=== PATIENT | female | born 1975 | race Caucasian/White ===

== ENCOUNTER 2017-01-15 11:10 | Emergency (ER) | payer OTHER ==
[~2017-01-15 11:10] MED LIST: ALUM5LIQ PO; HYDR-3533 PO; PROM25TA5 PO; TRAM50 PO
[2017-01-15 11:13] VITALS: BP 111/59; PULSE 88; RESP 20; TEMP 97.3; O2SAT 99
[2017-01-15] MEDS ORDERED: IBUPROFEN 800 MG TAB PO ONE (11:30)
--- NOTE | 2017-01-15 11:36 | PD ---
HPI Chief Complaint: Musculoskeletal Complaint Time Seen by Provider: 11:31 Travel History International Travel<30 days: No Contact w/Intl Traveler<30days: No Traveled to known affect area: No History of Present Illness HPI 41-year-old female presents to emergency Department with complaint of left lateral ankle pain that extends to the left lateral foot 2 days. She states that she worse heels 4 days ago and injured her ankle, but her symptoms worsened over the past 2 days. Denies fever, vomiting. Denies paresthesias, loss of sensation to the affected extremity. Has not taken any medications or tried any treatments to alleviate her symptoms. Symptoms are mild in severity. Allergies to hydrocodone. Has no other medical complaints. No other modifying factors or associated signs and symptoms. PFSH Past Medical History Asthma: Yes Blood Disorders: No Heart Rhythm Problems: No Cancer: No Cardiovascular Problems: No High Cholesterol: No Chest Pain: No Congestive Heart Failure: No COPD: No Diminished Hearing: No Endocrine: No Gastrointestinal Disorders: Yes Genitourinary: No Immune Disorder: No Musculoskeletal: No Neurologic: No Psychiatric: No Reproductive: No Respiratory: Yes (asthma) Immunizations Current: Yes Pancreatitis: Yes Sleep Apnea: No Tetanus Vaccination: < 5 Years ?: Not : 5 Para: 4 Past Surgical History Section: Yes Hysterectomy: Yes Other Surgery: Yes (, partial hysterectomy) Social History Alcohol Use: No Tobacco Use: Yes (a pack a day ) Substance Use: No Allergies-Medications (Allergen,Severity, Reaction): Coded Allergies: Hydrocodone (Verified Adverse Reaction, Severe, NAUSEA AND VOMITING, ) Reported Meds & Prescriptions Reported Meds & Active Scripts Active Reported Ventolin Hfa 18 GM Inh (Albuterol Sulfate) 90 Mcg/Act Aer 2 Puff INH Q4H PRN Review of Systems Except as stated in HPI: all other systems reviewed are Neg Physical Exam Narrative GENERAL: Well-nourished, well-developed female patient, in no acute distress SKIN: Warm and dry. HEAD: Atraumatic. Normocephalic. EYES: Pupils equal and round. No scleral icterus. No injection or drainage. ENT: Mucosa pink and moist. Airway patent. NECK: Trachea midline. CARDIOVASCULAR: Regular rate. RESPIRATORY: No accessory muscle use. GASTROINTESTINAL: Rounded. MUSCULOSKELETAL: Left ankle with point tenderness to the lateral malleolar and midfoot zone with palpation; mild edema; without erythema, ecchymosis; no obvious deformity. Left Lower extremity is supple and nontense with 2+ pedal pulse and sensory intact. No obvious deformities. No clubbing. No cyanosis. No edema. NEUROLOGICAL: Awake and alert. Oriented 3. No obvious cranial nerve deficits. Motor grossly within normal limits. Normal speech. PSYCHIATRIC: Appropriate mood and affect; insight and judgment normal. Data Data Last Documented VS Vital Signs Date Time Temp Pulse Resp B/P Pulse Ox O2 Delivery O2 Flow Rate FiO2 01/15/17 11:13 97.3 88 20 111/59 99 Room Air Orders Ankle, Complete (Pag1ltm) (01/15/17 11:21) Foot, Complete (Pby2ipw) (01/15/17 11:24) Ibuprofen (Motrin) (01/15/17 11:30) MDM Medical Decision Making Medical Screen Exam Complete: Yes Emergency Medical Condition: Yes Medical Record Reviewed: Yes Differential Diagnosis Ankle sprain, ankle fracture, foot sprain, foot fracture Narrative Course 41-year-old female with left ankle and foot injury. Ibuprofen administered in the ER. Left ankle and foot x-ray ordered. 1249: Left ankle and foot x-ray concludes: Last 24 hours Impressions Foot X-Ray 01/15/17 1124 Signed Impressions: Service Date/Time: Sunday, January 15, 2017 11:34 - CONCLUSION: 1. Mild soft tissue prominence along the posterior lateral foot with no acute fracture or malalignment. 2. Small spur off the inferior calcaneus. Dany Hannon MD Ankle X-Ray 01/15/17 1121 Signed Impressions: Service Date/Time: Sunday, January 15, 2017 11:33 - CONCLUSION: Soft tissue swelling with no acute fracture or malalignment. Dany Hannon MD [place] bandage and ankle stirrup splint for right upper support. Crutches provided for support. Ibuprofen prescribed for home. Instructed patient to follow up with primary care provider. Patient verbalizes understanding and agreement with treatment plan. Patient is medically cleared and stable for discharge. Discussed reasons to return to the emergency department. Patient agrees with treatment plan. The patients vital signs are stable and the patient is stable for outpatient follow-up and treatment. Patient discharged home, stable and in no acute distress. Diagnosis Primary Impression: Left ankle injury Qualified Code: S99.912A - Injury of left ankle, initial encounter Referrals: Primary Care Physician Patient Instructions: Ankle Sprain (ED), Foot Sprain (ED), General Instructions , Heel Spur (ED) Additional Instructions: Tylenol or ibuprofen as directed and as needed for pain and inflammation Rest, ice, compress, and elevate extremity to decrease pain and inflammation Ankle Brace for support Crutches for support Avoid aggravating activity; increase activity as tolerated Follow-up with primary care provider Return to the emergency department immediately with worsening of symptoms Med/Other Pt SpecificInfo: Prescription(s) given Scripts Ibuprofen 800 Mg [id number] Mg PO Q6HR PRN (PAIN) #30 TAB Ref 0 Prov:Mandie Felipe 01/15/17 Disposition: 01 DISCHARGE HOME Condition: Stable Mandie Felipe Jan 15, 2017 11:36
--- NOTE | 2017-01-15 11:53 | RADRPT ---
EXAM DATE/TIME: 01/15/2017 11:33 [facility] COMPARISON: No previous studies available for comparison. INDICATIONS : Left ankle pain, twisted MEDICAL HISTORY : None. SURGICAL HISTORY : None. ENCOUNTER: Initial ACUITY: 3 days PAIN SCORE: 4/10 LOCATION: Left Ankle FINDINGS: Three view exam was performed of the left ankle. The bony structures are in normal alignment. No ev idence of acute fracture or malalignment. There is soft tissue swelling over the lateral malleolus. The ankle mortise is intact. No radiopaque foreign bodies are seen. Bony mineralization is normal. There is a small spur off the inferior calcaneus. CONCLUSION: Soft tissue swelling with no acute fracture or malalignment. Dany Hannon MD on January 15, 2017 at 11:51 Board Certified Radiologist. This report was verified electronically.
--- NOTE | 2017-01-15 11:54 | RADRPT ---
EXAM DATE/TIME: 01/15/2017 11:34 [facility] COMPARISON: No previous studies available for comparison. INDICATIONS : Left foot pain, twisted MEDICAL HISTORY : None. SURGICAL HISTORY : None. ENCOUNTER: Initial ACUITY: 3 days PAIN SCORE: 4/10 LOCATION: Left Foot FINDINGS: Three view examination of the left foot demonstrates no acute fracture or or malalignment. There is m ild soft tissue prominence along the posterior lateral foot. The tarsal bones appear intact. The int erphalangeal and metatarsophalangeal joints are intact. There is a small spur off the inferior calcan eus at the site of attachment of the plantar aponuerosis. Bony mineralization is normal. CONCLUSION: 1. Mild soft tissue prominence along the posterior lateral foot with no acute fracture or malalignmen t. 2. Small spur off the inferior calcaneus. Dany Hannon MD on January 15, 2017 at 11:51 Board Certified Radiologist. This report was verified electronically.
[2017-01-15] MEDS ORDERED: VENTAER INH (12:29)
[2017-01-15] MEDS ORDERED: IBUP800T23 PO (12:51)
== END 2017-01-15 13:35 | disposition home or self-care (01) ==
LOC: NEPD 11:10
DX: S99.912A Unspecified injury of left ankle, initial encounter (principal); X58.XXXA Exposure to other specified factors, initial encounter; Z72.0 Tobacco use
CPT/HCPCS: 29540; 73610; 73630; 99283; E0113; L1906

== ENCOUNTER 2017-08-21 22:14 | Emergency (ER) | payer OTHER ==
[~2017-08-21] VITALS: Ht 162.6 cm; Wt 88.0 kg
[~2017-08-21 22:14] MED LIST changes: -ALUM5LIQ PO; -HYDR-3533 PO; +IBUP1TAB7 PO; -PROM25TA5 PO; -TRAM50 PO; +VENTAER INH
[2017-08-21 23:20] VITALS: BP 130/60; PULSE 85; RESP 18; TEMP 98.5; O2SAT 97
--- NOTE | 2017-08-22 02:23 | PD ---
HPI Chief Complaint: Flank/Kidney Pain Time Seen by Provider: 02:22 Travel History International Travel<30 days: No Contact w/Intl Traveler<30days: No Traveled to known affect area: No History of Present Illness HPI 41-year-old female came to the emergency room with history of abdominal discomfort with the pain radiating to her back. She has history of pancreatitis and she says this is how she felt when she had a pancreatitis. He symptoms are going on for past 5 days. Patient said she did not have any bowel movement up until earlier today and it was a small quantity. She has vomited few times. No history of fever or chills. Vital signs were relatively stable. Patient had a hysterectomy in the past. No aggravating or relieving factors identified. [facility] Past Medical History Narrative Medical List of her past medical, surgical, social and family history is reviewed from the nursing note. Asthma: Yes Blood Disorders: No Heart Rhythm Problems: No Cancer: No Cardiovascular Problems: No High Cholesterol: No Chest Pain: No Congestive Heart Failure: No COPD: No Diminished Hearing: No Endocrine: No Gastrointestinal Disorders: Yes Genitourinary: No Immune Disorder: No Implanted Vascular Access Dvce: No Musculoskeletal: No Neurologic: No Psychiatric: No Reproductive: No Respiratory: Yes (asthma) Immunizations Current: Yes Pancreatitis: Yes Sleep Apnea: No Tetanus Vaccination: Unknown Influenza Vaccination: No ?: Not : 5 Para: 4 Past Surgical History Section: Yes Hysterectomy: Yes Other Surgery: Yes (, partial hysterectomy) Social History Alcohol Use: No Tobacco Use: No (a pack a day ) Substance Use: No Allergies-Medications (Allergen,Severity, Reaction): Coded Allergies: hydrocodone (Unverified Adverse Reaction, Severe, NAUSEA AND VOMITING, ) Comments List of her allergies reviewed from the nursing note. Reported Meds & Prescriptions Reported Meds & Active Scripts Active Miralax Powder (Polyethylene Glycol 3350 Powder) 17 Gm Powd 17 Gm PO DAILY Mix and dissolve one measuring cap-ful (17 grams) in water or juice. Ibuprofen 800 Mg Tab 800 Mg PO Q6HR PRN Reported Ventolin Hfa 18 GM Inh (Albuterol Sulfate) 90 Mcg/Act Aer 2 Puff INH Q4H PRN Narrative Medication List of her home medications reviewed from the nursing note. Review of Systems Except as stated in HPI: all other systems reviewed are Neg Gastrointestinal: Positive: Nausea, Vomiting, Abdominal Pain, Constipation Physical Exam Narrative GENERAL: Awake, alert, moderate distress SKIN: Focused skin assessment warm/dry. HEAD: Atraumatic. Normocephalic. EYES: Pupils equal and round. No scleral icterus. No injection or drainage. ENT: No nasal bleeding or discharge. Mucous membranes pink and moist. NECK: Trachea midline. No JVD. CARDIOVASCULAR: Regular rate and rhythm. No murmur appreciated. RESPIRATORY: No accessory muscle use. Clear to auscultation. Breath sounds equal bilaterally. GASTROINTESTINAL: Abdomen soft, non-tender, nondistended. Hepatic and splenic margins not palpable. MUSCULOSKELETAL: No obvious deformities. No clubbing. No cyanosis. No edema. NEUROLOGICAL: Awake and alert. No obvious cranial nerve deficits. Motor grossly within normal limits. Normal speech. PSYCHIATRIC: Appropriate mood and affect; insight and judgment normal. Data Data Last Documented VS Orders Orders Complete Blood Count With Diff (08/22/17 02:30) Comprehensive Metabolic Panel (08/22/17 02:30) Lipase (08/22/17 02:30) Urinalysis - C+S If Indicated (08/22/17 02:30) Ct Abd/Pel W/O Iv Contrast (08/22/17 02:30) Iv Access Insert/Monitor (08/22/17 02:30) Ecg Monitoring (08/22/17 02:30) Oximetry (08/22/17 02:30) Morphine Inj (Morphine Inj) (08/22/17 02:30) Ondansetron Inj (Zofran Inj) (08/22/17 02:30) Sodium Chlor 0.9% 1000 Ml Inj (Ns 1000 M (08/22/17 02:30) Sodium Chloride 0.9% Flush (Ns Flush) (08/22/17 02:30) Ed Discharge Order (08/22/17 04:23) Labs Laboratory Tests Test 08/22/17 03:05 White Blood Count 13.0 TH/MM3 Red Blood Count 4.93 MIL/MM3 Hemoglobin 14.7 GM/DL Hematocrit 43.6 % Mean Corpuscular Volume 88.5 FL Mean Corpuscular Hemoglobin 29.8 PG Mean Corpuscular Hemoglobin Concent 33.6 % Red Cell Distribution Width 13.3 % Platelet Count 409 TH/MM3 Mean Platelet Volume 6.8 FL Neutrophils (%) (Auto) 55.4 % Lymphocytes (%) (Auto) 31.4 % Monocytes (%) (Auto) 8.3 % Eosinophils (%) (Auto) 4.3 % Basophils (%) (Auto) 0.6 % Neutrophils # (Auto) 7.2 TH/MM3 Lymphocytes # (Auto) 4.1 TH/MM3 Monocytes # (Auto) 1.1 TH/MM3 Eosinophils # (Auto) 0.6 TH/MM3 Basophils # (Auto) 0.1 TH/MM3 CBC Comment DIFF FINAL Differential Comment Urine Color YELLOW Urine Turbidity HAZY Urine pH 6.0 Urine Specific Hunt 1.017 Urine Protein TRACE mg/dL Urine Glucose (UA) NEG mg/dL Urine Ketones NEG mg/dL Urine Occult Blood SMALL Urine Nitrite NEG Urine Bilirubin NEG Urine Urobilinogen LESS THAN 2.0 MG/DL Urine Leukocyte Esterase TRACE Urine RBC 5 /hpf Urine WBC 2 /hpf Urine Squamous Epithelial Cells 38 /hpf Urine Bacteria FEW /hpf Urine Hyaline Casts 1 /lpf Urine Mucus FEW /lpf Microscopic Urinalysis Comment CULT NOT INDICATED Blood Urea Nitrogen 12 MG/DL Creatinine 0.77 MG/DL Random Glucose 94 MG/DL Total Protein 7.5 GM/DL Albumin 3.8 GM/DL Calcium Level 8.6 MG/DL Alkaline Phosphatase 62 U/L Aspartate Amino Transf (AST/SGOT) 20 U/L Alanine Aminotransferase (ALT/SGPT) 35 U/L Total Bilirubin 0.2 MG/DL Sodium Level 138 MEQ/L Potassium Level 3.9 MEQ/L Chloride Level 106 MEQ/L Carbon Dioxide Level 26.3 MEQ/L Anion Gap 6 MEQ/L Estimat Glomerular Filtration Rate 83 ML/MIN Lipase 177 U/L [facility] Medical Decision Making Medical Screen Exam Complete: Yes Emergency Medical Condition: Yes Medical Record Reviewed: Yes Differential Diagnosis Acute pancreatitis, small bowel obstruction, abdominal pain NOS Narrative Course 4:27 AM blood test results of back and patient has some leukocytosis. Otherwise chemistries negative and lipase is normal limits. CT scan of the abdomen and pelvis does not show any acute reason for this pain. There was an incidental finding of appendicolith. I explained all of these test results to the patient. UA was negative. At this point I do not have a good reason for her abdominal pain. I will discharge her home on MiraLAX for possible constipation. Patient discomfort going home. Procedures EKG Prior to Arrival: No Diagnosis Primary Impression: Abdominal pain Qualified Codes: R10.84 - Generalized abdominal pain Additional Impression: Constipation Qualified Codes: K59.00 - Constipation, unspecified Referrals: Primary Care Physician Additional Instructions: Eat high fiber diet and drink lots of fluid. Take the medication as per the prescription direction. Return to ER if condition worsens or any other new concerns. Otherwise follow-up with your primary care. Med/Other Pt SpecificInfo: Prescription(s) given Scripts Polyethylene Glycol 3350 Powder (Miralax Powder) 17 Gm Powd 17 GM PO DAILY for Constipation, #1 CAN 0 Refills Mix and dissolve one measuring cap-ful (17 grams) in water or juice. Prov: Nishant Escobar MD 08/22/17 Disposition: 01 DISCHARGE HOME Condition: Stable Nishant Escobar MD Aug 22, 2017 02:23
[2017-08-22] MEDS ORDERED: MORPHINE SULFATE 4 MG/ML INJ IV PUSH ONE (02:30)
[2017-08-22] MEDS ORDERED: SODIUM CHLOR 0.9% 1000 ML INJ 1,000 ML IV SCH (02:30)
[2017-08-22] MEDS ORDERED: SODIUM CHLORIDE 0.9% FLUSH 10 ML FLUSH IV FLUSH PRN (02:30)
[2017-08-22] MEDS ORDERED: ONDANSETRON HCL 4 MG/2 ML VIAL IVP ONE (02:30)
[2017-08-22 03:21] LABS: BACTERIA, URINE FEW /hpf; BILIRUBIN, URINE NEG (NEG); BLOOD, URINE SMALL (NEG); GLUCOSE,URINE NEG (NEG); HYALINE CAST, URINE 1 /lpf (RARE); KETONE, URINE NEG (NEG); MUCUS URINE FEW /lpf (OCC); NITRITE,URINE NEG (NEG); SQUAMOUS EPITHELIAL CELL URINE 38 /hpf (0-5); URINE COLOR YELLOW (YELLW/STRAW); URINE LEUKOCYTE ESTERASE TRACE (NEG)
[2017-08-22 03:22] LABS: AUTOMATED NEUTROPHIL # 7.2 TH/MM3 (1.8-7.7); BASOPHIL # 0.1 TH/MM3 (0-0.2); BASOPHIL % 0.6 % (0.0-2.0); EOSINOPHIL # 0.6 TH/MM3 (0-0.4); EOSINOPHIL % 4.3 % (0.0-4.0); HEMATOCRIT 43.6 % (35.0-46.0); HEMOGLOBIN 14.7 GM/DL (11.6-15.3); LYMPH % 31.4 % (9.0-44.0); LYMPHOCYTE # 4.1 TH/MM3 (1.0-4.8); MEAN CELL VOLUME 88.5 FL (80.0-100.0); MEAN CORPUSCULAR HEMOGLOBIN 29.8 PG (27.0-34.0); MEAN CORPUSCULAR HGB CONC 33.6 % (32.0-36.0); MEAN PLATELET VOLUME 6.8 FL (7.0-11.0); MONO % 8.3 % (0.0-8.0); MONOCYTE # 1.1 TH/MM3 (0-0.9); NEUT % 55.4 % (16.0-70.0); PLATELET COUNT 409 TH/MM3 (150-450); RED BLOOD COUNT 4.93 MIL/MM3 (4.00-5.30); RED CELL DISTRIBUTION WIDTH 13.3 % (11.6-17.2)
[2017-08-22 03:27] LABS: ALBUMIN 3.8 GM/DL (3.4-5.0); ALT (GPT) 35 U/L (10-53); AST (GOT) 20 U/L (15-37); BICARBONATE 26.3 MEQ/L (21.0-32.0); BLOOD UREA NITROGEN 12 MG/DL (7-18); CALCIUM 8.6 MG/DL (8.5-10.1); CHLORIDE 106 MEQ/L (98-107); CREATININE 0.77 MG/DL (0.50-1.00); GLOMERULAR FILTRATION RATE 83 ML/MIN (>89); GLUCOSE,RANDOM 94 MG/DL (74-106); SODIUM (NA) 138 MEQ/L (136-145)
[2017-08-22 03:29] LABS: ALKALINE PHOSPHATASE 62 U/L (45-117); TOTAL BILIRUBIN ADULT 0.2 MG/DL (0.2-1.0); TOTAL PROTEIN 7.5 GM/DL (6.4-8.2)
--- NOTE | 2017-08-22 03:44 | RADRPT ---
EXAM DATE/TIME: 08/22/2017 03:17 [facility] COMPARISON: CT ABDOMEN & PELVIS W/O CONTRAST, August 13, 2015, 12:10. INDICATIONS : Right flank pain past 5 days. ORAL CONTRAST: No oral contrast ingested. RADIATION DOSE: 15.35 CTDIvol (mGy) MEDICAL HISTORY : Pancreatitis. Asthma SURGICAL HISTORY : Hysterectomy. ENCOUNTER: Initial ACUITY: 4 - 6 days PAIN SCALE: 7/10 LOCATION: Right flank TECHNIQUE: Volumetric scanning of the abdomen and pelvis was performed. Using automated exposure control and ad justment of the mA and/or kV according to patient size, radiation dose was kept as low as reasonably achievable to obtain optimal diagnostic quality images. DICOM format image data is available electro nically for review and comparison. FINDINGS: LOWER LUNGS: The visualized lower lungs are clear. LIVER: Homogeneous density without lesion for noncontrast technique. There is no dilation of the biliary tr ee. No calcified gallstones. SPLEEN: Normal size without lesion. PANCREAS: Within normal limits. KIDNEYS: Normal in size and shape. There is no mass, stone, or hydronephrosis. No calcified stones in the co llecting system or either ureter. ADRENAL GLANDS: Within normal limits. VASCULAR: There is no aortic aneurysm. BOWEL/MESENTERY: No dilated loops of small or large bowel. The appendix is identified inferior and medial to the cecu m, is normal in dimension and the fat about the appendix is intact. There is a solitary punctate denise cification which may be within the lumen of the appendix near the tip, measuring 2 mm, best seen on a xial image #15. No evidence of free fluid. ABDOMINAL WALL: Within normal limits. RETROPERITONEUM: There is no lymphadenopathy. BLADDER: No wall thickening or mass. REPRODUCTIVE: Within normal limits. INGUINAL: There is no lymphadenopathy or hernia. MUSCULOSKELETAL: Within normal limits for patient age. CONCLUSION: 1. Negative noncontrast CT abdomen/pelvis. 2. Normal size to the appendix and no induration of the periappendiceal fat, but there is a possible calcified appendicolith. Bill Rajput MD on August 22, 2017 at 3:38 Board Certified Radiologist. This report was verified electronically.
[2017-08-22] MEDS ORDERED: MIRA3350 PO (04:24)
== END 2017-08-22 04:35 | disposition home or self-care (01) ==
LOC: NEPE 22:14
DX: R10.84 Generalized abdominal pain (principal); K59.00 Constipation, unspecified; D72.829 Elevated white blood cell count, unspecified; R11.2 Nausea with vomiting, unspecified; J45.909 Unspecified asthma, uncomplicated; F17.200 Nicotine dependence, unspecified, uncomplicated; Z79.899 Other long term (current) drug therapy; Z88.5 Allergy status to narcotic agent; Z87.19 Personal history of other diseases of the digestive system
CPT/HCPCS: 74176; 80053; 81001; 83690; 85025; 96361; 96374; 96375; 99284; J2270; J2405; J7030